=== PATIENT | female | born 1970 | race Caucasian/White ===

== ENCOUNTER → 2024-04-02 | Outpatient (REF) ==
[2024-04-02 11:57] LABS: VENOUS BASE EXCESS -1.6 (-2.0-2.0); VENOUS HCO3 24.9 MMOL/L (23.0-27.0); VENOUS O2 SATURATION 80.7 % (60.0-80.0); VENOUS PARTIAL PRESSURE CO2 48.5 mmHg (38.0-50.0); VENOUS PARTIAL PRESSURE O2 44.3 mmHg (30.0-50.0); VENOUS PH 7.328 UNITS (7.330-7.430); VENOUS SITE NOT GIVEN; VENOUS STANDARD HCO3 22.7 MMOL/L; VENOUS TOTAL CO2 26.4 MMOL/L (24.0-28.0)
== END ==
LOC: M LAB REF 11:51
PROVIDERS: ATTEND Nurse Practitioner Family
DX: Z00.00 Encounter for general adult medical examination without abnormal findings (principal)